=== PATIENT | male | born 1985 | race Caucasian/White ===

== ENCOUNTER 2019-03-21 14:39 | Emergency (ER) | payer BC, MEDICAID ==
[~2019-03-21] VITALS: Ht 180.3 cm; Wt 97.1 kg
--- NOTE | 2019-03-21 14:45 | NUR ---
PT [id number], C/O LEFT ANKLE DISLOCATION, S/P FALL FROM SCOOTER, PT IS AAOX4, NOT IN RESPIRATORY DISTRESS, HOOKED TO MONITOR, KEPT RESTED AND COMFORTABLE, WILL CONTINUE TO MONITOR.
--- NOTE | 2019-03-21 15:14 | NUR ---
SEEN AND EXAMINED BY
--- NOTE | 2019-03-21 15:15 | NUR ---
IV LINE ESTABLISHED [place] [address].
--- NOTE | 2019-03-21 15:18 | NUR ---
DIETARY COOK AT BEDSIDE FOR XRAY.
[2019-03-21] MEDS ORDERED: HYDROMORPHONE 1 MG/1 ML DISP.SYRIN ONE (15:20)
[2019-03-21] MEDS ORDERED: PROPOFOL 100 ML ONE (15:26)
[2019-03-21] MEDS ORDERED: HYDROMORPHONE 1 MG/1 ML DISP.SYRIN IV ONE (15:30)
[2019-03-21] MEDS ORDERED: PROPOFOL 200 MG/20 ML VIAL IV ONE (15:30)
--- NOTE | 2019-03-21 15:40 | NUR ---
RT AND TECH AT BEDSIDE PREPARING FOR CONSCIOUS SEDATION.
[2019-03-21] MEDS ORDERED: IBUPROFEN 400 MG TABLET ONE (16:36)
--- NOTE | 2019-03-21 16:40 | NUR ---
IV removed. Catheter intact and site benign. Pressure and 4x4 applied to site. No bleeding noted. Patient discharged to home in stable condition. Written and verbal after care instructions given. Patient verbalizes understanding of instruction.
[2019-03-21 16:41] VITALS: BP 110/63
[2019-03-21] MEDS ORDERED: IBUPROFEN 400 MG TABLET PO ONE (17:00)
== END 2019-03-21 16:45 | disposition home or self-care (01) ==
LOC: ER 14:41
DX: S82.852A Displaced trimalleolar fracture of left lower leg, initial encounter for closed fracture (principal); F32.9 Major depressive disorder, single episode, unspecified; Z60.2 Problems related to living alone; W05.1XXA Fall from non-moving nonmotorized scooter, initial encounter; Y93.55 Activity, bike riding; Y92.89 Other specified places as the place of occurrence of the external cause; Y99.8 Other external cause status
CPT/HCPCS: 27818; 73600; 73610; 96374; 99152; 99285; J1170; J3490; J7030; J7040; G0500